=== PATIENT | female | born 1985 ===

== ENCOUNTER 2018-07-04 10:46 | Inpatient (IN) | payer OTHER ==
[~2018-07-04] VITALS: Ht 160 cm; Wt 62.6 kg
[2018-07-31] MEDS ORDERED: PRENATAL CAPLE1 EAC1 PO (10:43)
[2018-07-31] MEDS ORDERED: SYNTHROID88 MCG PO (10:44)
[2018-07-31] MEDS ORDERED: IRON325 MG PO (10:44)
[2018-07-31] MEDS ORDERED: SINGULAIR 10MG10 MG PO (10:44)
== END 2018-08-02 11:13 | disposition home or self-care (01) | DRG 807 ==
LOC: OB/GYN 07-12 10:45 → ADM 07-12 10:45 → EDSTATUS 07-12 10:45 → OB/GYN 07-22 10:45 → LDR 07-31 06:36 → OB/GYN 07-31 06:36 → LDR 07-31 07:06 → OB/GYN 07-31 20:14
PROVIDERS: ADMIT Obstetrics & Gynecology Maternal & Fetal Medicine
PROC: 10E0XZZ Delivery of Products of Conception, External Approach (ICD-10-PCS; principal; 2018-07-31)
PROC: 0W8NXZZ Division of Female Perineum, External Approach (ICD-10-PCS; 2018-07-31)
PROC: 3E033VJ Introduction of Other Hormone into Peripheral Vein, Percutaneous Approach (ICD-10-PCS; 2018-07-31)
PROC: 4A1HXCZ Monitoring of Products of Conception, Cardiac Rate, External Approach (ICD-10-PCS; 2018-07-31)
DX: O80 Encounter for full-term uncomplicated delivery (principal); Z37.0 Single live birth; Z3A.39 39 weeks gestation of pregnancy

== ENCOUNTER 2018-07-24 12:01 | Outpatient (CLI) | payer OTHER | END 2018-07-24 13:28 | disposition home or self-care (01) | LOC: NST 12:01 | DX: Z34.83 Encounter for supervision of other normal pregnancy, third trimester (principal) ==

== ENCOUNTER 2018-11-17 19:29 | Emergency (ER) | payer OTHER ==
[~2018-11-17] VITALS: Ht 162.6 cm; Wt 52.6 kg
[~2018-11-17 19:29] MED LIST: IRON325 MG PO; PRENATAL CAPLE1 EAC1 PO; SINGULAIR 10MG10 MG PO; SYNTHROID88 MCG PO
[2018-11-18] MEDS ORDERED: ZOFRAN4 MG PO (01:22)
[2018-11-18] MEDS ORDERED: PEPCID40 MG PO (01:22)
== END 2018-11-18 01:33 | disposition home or self-care (01) ==
LOC: ER 19:29
DX: K29.70 Gastritis, unspecified, without bleeding (principal); R11.11 Vomiting without nausea

== ENCOUNTER 2019-03-31 17:44 | Emergency (ER) | payer OTHER ==
[~2019-03-31] VITALS: Ht 160 cm; Wt 49.9 kg
[~2019-03-31 17:44] MED LIST changes: +PEPCID40 MG PO; +ZOFRAN4 MG PO
== END 2019-03-31 22:53 | disposition home or self-care (01) ==
LOC: ER 17:44
DX: K52.89 Other specified noninfective gastroenteritis and colitis (principal)

== ENCOUNTER 2023-06-14 11:22 | Outpatient (CLI) | payer OTHER | END 2023-06-14 11:28 | disposition home or self-care (01) | LOC: MAMO-SONO 11:22 | PROVIDERS: ATTEND Obstetrics & Gynecology | DX: N60.11 Diffuse cystic mastopathy of right breast (principal) ==

== ENCOUNTER 2024-01-31 12:07 | Outpatient (CLI) | payer OTHER | END 2024-01-31 12:16 | disposition home or self-care (01) | LOC: SONOGRAMA 12:07 | PROVIDERS: ATTEND Internal Medicine | DX: N60.22 Fibroadenosis of left breast (principal); Z12.39 Encounter for other screening for malignant neoplasm of breast ==